=== PATIENT | male | born 2000 ===

== ENCOUNTER 2022-03-13 14:49 | Outpatient (CLI) | payer BC ==
[2022-03-13] MEDS ORDERED: Iopamidol 300 61% 100 ML VIAL FS ONE (15:14)
== END 2022-03-13 14:50 | disposition home or self-care (01) ==
LOC: CSHCT 14:49
PROVIDERS: ATTEND Student in an Organized Health Care Education/Training Program
DX: R51.9 Headache, unspecified (principal)
CPT/HCPCS: 70470; Q9967